=== PATIENT | male | born 1940 | race American Indian/Alaskan Native ===

== ENCOUNTER 2016-11-17 08:34 | Day surgery (SDC) | payer MEDICARE ==
[2016-11-09 12:27] VITALS: BMI 30.7
[2016-11-17] MEDS ORDERED: Ampicillin/Sulbactam 1.5 gm Inj ONE (09:58)
[2016-11-17] MEDS ORDERED: Propofol 10 mg/ml Inj (20 ML) ONE (10:21)
[2016-11-17] MEDS ORDERED: Etomidate 20 mg/10ml Inj IV ONE (10:21)
[2016-11-17] MEDS ORDERED: Midazolam 2 MG/2 ML VIAL ONE (10:21)
[2016-11-17] MEDS ORDERED: Sodium Chloride 0.9% 1,000 ML IV SCH (12:00)
[2016-11-17 12:41] VITALS: BP 123/71; PULSE 62; RESP 16; TEMP 97.7; O2SAT 99
== END 2016-11-17 13:48 | disposition home or self-care (01) ==
LOC: ENDO 08:34
PROVIDERS: ATTEND Internal Medicine Gastroenterology
DX: K25.9 Gastric ulcer, unspecified as acute or chronic, without hemorrhage or perforation (principal); K62.5 Hemorrhage of anus and rectum; K29.50 Unspecified chronic gastritis without bleeding; K63.89 Other specified diseases of intestine; K64.8 Other hemorrhoids
CPT/HCPCS: 43239; 45378; 88305; 88342; J0295; J2250; J2704; J3010; J7040